=== PATIENT | female | born 1935 | race Caucasian/White ===

== ENCOUNTER 2016-12-07 19:21 | Emergency (ER) | payer MEDICARE, OTHER ==
--- NOTE | 2016-12-07 20:19 | ER PHYSICIAN DOCUMENTATION ---
Physician Documentation [facility] Name:Sakshi Chauhan Age:81 yrs Sex:Female :1935 Arrival Date:12/07/2016 Time:19:21 Bed6 Private MD: Lui Gandhi Disposition: 12/08 00:01 Chart complete. tl1 Disposition: 12/07/16 19:51 Discharged to Home/Self Care. Impression: Forearm Contusion. - Condition is Good. - Discharge Instructions: CONTUSION, Upper Extremity, HEMATOMA. - Medical Reconciliation form form. - Follow up: Morgan Birch MD; When: Tomorrow; Reason: Recheck today's complaints, Continuance of care. - Problem is new. - Symptoms are unchanged. HPI: 12/07 19:27 This 81 yrs old Female presents to ER with complaints of Arm Injury - RIGHT. tl1 19:39 The patient or guardian complains of contusion, injury. 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 She initially had a moderate amount of pain, and called Dr Birch's office. Phone triage led, apparently to a recommendation to see him if it worsened. The swelling and pain have since increased, so she came in. She denies numbness, weakness or tingling. Pain is 7/10. Historical: - Allergies: SULFA (SULFONAMIDES); - Home Meds: 1. Cephalexin Oral 2. donepezil oral 3. Methotrexate (Anti-Rheumatic) Oral 4. Namenda oral 5. bupropion HCl Oral 6. Ambien Oral 7. aspirin 81 mg oral chew 1 tab once daily 8. Lexapro Oral 9. Folic Acid Oral 10. remicade infusion monthly 11. prolia 12. Calcium Carbonate Oral 13. steroid - PMHx: RHEUMATOID ARTHRITIS; UTI prevention; DEMENTIA; OSTEOPOROSIS; recent total body rash; fall 1 year ago with hospitalization; - PSHx: Appendectomy; oopherectomy; colonectomy; intestinal adhesion removal; hemorrhoidectomy; - Tetanus: < 10 years. - Ebola Screening: : Patient negative for fever greater than or equal to 101.5 degrees Fahrenheit, and additional compatible Ebola Virus Disease symptoms. Patient denies exposure to infectious person. Patient denies travel to an Ebola-affected area in the 21 days before illness onset. No symptoms or risks identified at this time. . - Immunization history: Pneumococcal vaccine is up to date, Flu Vaccine < 1 year. - Social history: Smoking status: Patient states was never smoker of tobacco. Patient uses alcohol on a daily basis. Patient/guardian denies using marijuana. ROS: 23:56 MS/extremity: Positive for ecchymosis, pain, swelling, tenderness, of the palmar aspect tl1 of right forearm, Negative for decreased range of motion, laceration, paresthesias, tingling. 23:56 All other systems are negative. Exam: 19:40 Constitutional: This is a well developed, well nourished patient who is awake, alert, tl1 and in no acute distress. 19:40 Head/Face: Normocephalic, atraumatic. tl1 19:40 Musculoskeletal/extremity: Extremities: grossly normal except: noted in the dorsal tl1 aspect of right forearm: contusion, ecchymosis, swelling, tenderness, There is no evidence of compartment syndrome., ROM: intact in all extremities, Pulses: noted to be 2+ in the right radial artery, Sensation intact. Compartment Syndrome exam of affected extremity: is normal. 19:40 Skin: Exam negative for acute changes. Vital Signs: 19:49 BP 162 / 80; Pulse 74; Resp 16; Temp 97.9(TE); Pulse Ox 91% on R/A; Weight 54.43 kg; sj Height 5 ft. 3 in. (160.02 cm); Pain 5/10; 19:49 Body Mass Index 21.26 (54.43 kg, 160.02 cm) sj MDM: 19:27 Patient medically screened. tl1 19:50 Differential diagnosis: closed fracture, contusion. Data reviewed: vital signs, nurses tl1 notes, radiologic studies, plain films, and as a result, I will discharge patient. Counseling: I had a detailed discussion with the patient and/or guardian regarding: the historical points, exam findings, and any diagnostic results supporting the discharge/admit diagnosis, radiology results, the need for outpatient follow up, to return to the emergency department if symptoms worsen or persist or if there are any questions or concerns that arise at home. Response to treatment: the patient's symptoms have mildly improved after treatment, and as a result, I will discharge patient. ED course: Clarence wrap with gentle pressure placed by me.. 12/08 11:30 Order name: ELBOW;[place] [id number] EDMS Dispensed Medications: 20:00 Drug: HYDROcodone-acetaminophen (5mg/325 mg) 1-2 tabs 1 tabs; Route: PO; sj 20:17 Follow up: Response: Pharmacy closed - take home med pack sj Signatures: Lui Hammond MD MD tl1 Laura Summers
--- NOTE | 2016-12-07 20:19 | ER NURSING DOCUMENTATION ---
Nurse's Notes [facility] Name:Sakshi Chauhan Age:81 yrs Sex:Female :1935 Arrival Date:12/07/2016 Time:19:21 Bed6 Private MD: Diagnosis:Forearm Contusion Presentation: 12/07 19:39 Presenting complaint: states: fell against bathtub while getting up from toilet sj and injured right forearm. Now large hematoma with no open area to proximal forearm. Full ROM. Transition of care: Home. 19:39 Acuity: JD 4 sj 19:39 Method Of Arrival: Private Vehicle Triage Assessment: 19:46 General: Appears slender, Behavior is cooperative, pleasant. Pain: Complains of pain in sj proximal dorsal aspect of right forearm Pain currently is 5 out of 10 on a pain scale. Neuro: Level of Consciousness is awake, alert, Oriented to person, place, event, Tortilla Maker are Moves all extremities. Cardiovascular: Capillary refill < 3 seconds. Respiratory: Respiratory effort is even, unlabored, Respiratory pattern is regular. Musculoskeletal: Circulation, motion, and sensation intact Capillary refill < 3 seconds Range of motion limited in external rotation of right forearm Swelling present in proximal dorsal aspect of right forearm Denies numbness in, right hand. 20:16 Injury Description: hematoma right proximal forearm. sj Historical: - Allergies: SULFA (SULFONAMIDES); - Home Meds: 1. Cephalexin Oral 2. donepezil oral 3. Methotrexate (Anti-Rheumatic) Oral 4. Namenda oral 5. bupropion HCl Oral 6. Ambien Oral 7. aspirin 81 mg oral chew 1 tab once daily 8. Lexapro Oral 9. Folic Acid Oral 10. remicade infusion monthly 11. prolia 12. Calcium Carbonate Oral 13. steroid - PMHx: RHEUMATOID ARTHRITIS; UTI prevention; DEMENTIA; OSTEOPOROSIS; recent total body rash; fall 1 year ago with hospitalization; - PSHx: Appendectomy; oopherectomy; colonectomy; intestinal adhesion removal; hemorrhoidectomy; - Tetanus: < 10 years. - Ebola Screening: : Patient negative for fever greater than or equal to 101.5 degrees Fahrenheit, and additional compatible Ebola Virus Disease symptoms. Patient denies exposure to infectious person. Patient denies travel to an Ebola-affected area in the 21 days before illness onset. No symptoms or risks identified at this time. . - Immunization history: Pneumococcal vaccine is up to date, Flu Vaccine < 1 year. - Social history: Smoking status: Patient states was never smoker of tobacco. Patient uses alcohol on a daily basis. Patient/guardian denies using marijuana. Screenin:49 Infectious Disease Risk None. Abuse screen: Denies threats or abuse. Denies injuries sj from another. Nutritional screening: No deficits noted. Assessment: 19:49 See Triage Assessment done by same RN. Vital Signs: 19:49 BP 162 / 80; Pulse 74; Resp 16; Temp 97.9(TE); Pulse Ox 91% on R/A; Weight 54.43 kg; sj Height 5 ft. 3 in. (160.02 cm); Pain 5/10; 19:49 Body Mass Index 21.26 (54.43 kg, 160.02 cm) ED Course: 19:23 Patient arrived in ED. cj 19:27 Lui Hammond MD is Attending Physician. tl1 19:39 Laura Summers is Primary Nurse. sj 19:40 Triage completed. sj 19:43 Port Xray Completed. lexx 19:49 Notified ED Physician of patient's arrival and chief complaint. Dr. Hammond notified. sj 19:50 Morgan Birch MD is Referral Physician. tl1 19:50 Valuables Given to family. Patient has correct armband on for positive identification. sj Bed in low position. Call light in reach. Side rails up X 1. 19:50 Affected limb iced. Affected limb elevated. sj 20:15 Clarence wrap to right arm. sj Administered Medications: 20:00 Drug: HYDROcodone-acetaminophen (5mg/325 mg) 1-2 tabs 1 tabs; Route: PO; sj 20:17 Follow up: Response: Pharmacy closed - take home med pack Outcome: 19:51 Discharge ordered by . tl1 20:15 Discharged to home ambulatory, with family. sj 20:15 Condition: stable 20:15 Instructed on discharge instructions, follow up and referral plans. Demonstrated understanding of instructions, medications. 20:18 Patient left the ED. 12/08 17:17 Discharge F/U Call: Spoke with: spouse with permission of patient. Name: Don Are you lp having any pain? no. Have you filled your prescriptions? yes. Signatures: Margaret Hernandez RN RN sammi Brewster, Lui Daily MD MD tl1 Lyn Madrid Sarah sj
--- NOTE | 2016-12-08 07:02 | RADIOLOGY REPORT ---
Three views of the right elbow demonstrate no displaced fracture or dislocation. The visualized joints appear unremarkable. Extensive posterolateral soft tissue swelling is noted. IMPRESSION: Soft tissue swelling. No displaced bony injury is identified. If clinically indicated, further evaluation and/or follow-up may be of benefit. MTDD
== END 2016-12-07 20:19 | disposition home or self-care (01) ==
LOC: ER 19:21
DX: S50.11XA Contusion of right forearm, initial encounter (principal); W01.198A Fall on same level from slipping, tripping and stumbling with subsequent striking against other object, initial encounter; Y92.012 Bathroom of single-family (private) house as the place of occurrence of the external cause; Y93.01 Activity, walking, marching and hiking; M81.0 Age-related osteoporosis without current pathological fracture; M06.9 Rheumatoid arthritis, unspecified; Z79.899 Other long term (current) drug therapy; Z79.82 Long term (current) use of aspirin
CPT/HCPCS: 73080; 99282; 99283